=== PATIENT | female | born 1950 | race African-American/Black ===

== ENCOUNTER 2018-11-06 18:36 | Emergency (ER) | payer MEDICARE, BC ==
[~2018-11-06] VITALS: Ht 167.6 cm; Wt 93.0 kg
--- OUTSIDE RECORDS SUMMARY | 2018-11-06 18:38 | XMS REPORT | Clinical Summary ---
Author Author [facility] Organization [facility] Address Unknown Phone Unavailable Care Team Providers Care Hardware Engineer Name Role Phone Jesus Quesada MD PCP Allergies No Known Allergies Medications End Date Status Medication Sig Dispensed Refills Start Date Active acetaminophen-codeine 0 (TYLENOL WITH CODEINE #3) 8 300-30 mg per tablet Active azelastine 0.15 % (205.5 2 mcg) spray,non-aerosol 8 Active escitalopram (LEXAPRO) 20 2 MG tablet 8 Active gabapentin (NEURONTIN) 0 100 mg capsule 8 Active lansoprazole (PREVACID) 0 30 MG capsule 8 Active fluticasone (FLONASE) 50 2 sprays by 0 mcg/actuation nasal spray Each Nare route daily. 01/03/2019 Active losartan (COZAAR) 100 MG Take 1 tablet 90 tablet 1 tabletIndications: (100 mg 8 Essential hypertension total) by mouth daily for 180 days. Active peppermint oil 0.2 mL Take 1 30 capsule 2 capsule,delayed capsule by 9 release(DR/EC)Indications mouth daily. : Irritable bowel syndrome with diarrhea 09/29/2019 Active capsaicin (ZOSTRIX) 0.025 Apply 60 g 0 % creamIndications: topically 2 9 Neuropathy (two) times a day. Active amLODIPine (NORVASC) 10 Take 1 tablet 90 tablet 1 mg tabletIndications: (10 mg total) 9 Essential hypertension by mouth daily. 09/29/2018 Discontinued amLODIPine (NORVASC) 5 mg 0 tablet 8 07/07/2018 Discontinued losartan (COZAAR) 50 MG 0 09/11/201 tablet 8 Active Problems Problem Noted Date Mild cognitive impairment 09/29/2018 Lumbar degenerative disc disease 09/29/2018 Overview: Currently managed by surgery. Using narcotic but only as needed. Discussed risks. Xerosis of skin 09/29/2018 roasterman current use of opiate analgesic 09/29/2018 Neuropathy 09/29/2018 Chronic abdominal pain 09/29/2018 Diverticulosis of large intestine without hemorrhage 09/01/2018 Essential hypertension 07/20/2018 GERD with esophagitis 07/20/2018 Cervicalgia 07/20/2018 Menopausal and female climacteric states 07/20/2018 Vertigo 07/20/2018 Age-related osteoporosis without current pathological fracture 07/20/2018 Seasonal allergic rhinitis due to pollen 07/20/2018 Hiatal hernia 07/20/2018 Prediabetes 07/20/2018 Irritable bowel syndrome 07/20/2018 Abnormal transaminases 07/20/2018 Vitamin D deficiency 07/20/2018 Recurrent major depressive disorder, in full remission 07/20/2018 Hallux valgus, left 07/20/2018 Elevated LDL cholesterol level 07/20/2018 Overview: 183 in 2016 Colon cancer screening 11/05/2009 Encounters Care Team Description Date Type Specialty Jesus Quesada MD MCI (mild cognitive impairment) with memory loss (Primary Dx); Chronic abdominal pain; Neuropathy; Age-related osteoporosis with current pathological fracture, sequela; Fatigue, unspecified type; roasterman current use of opiate analgesic ; Xerosis of skin; Lumbar degenerative disc disease; Essential hypertension 09/29/2018 Office Visit Internal Medicine Jesus Quesada MD Irritable bowel syndrome with diarrhea (Primary Dx) 09/01/2018 Office Visit Internal Medicine Jesus Quesada MD 08/30/2018 Documentation Internal Medicine Jesus Quesada MD 07/08/2018 Telephone Internal Medicine Jesus Quesada MD Age-related osteoporosis without current pathological fracture (Primary Dx); Essential hypertension; Elevated lipids; Pre-diabetes; Encounter to establish care 07/07/2018 Office Visit Internal Medicine Mady Valverde MA 07/07/2018 Telephone Internal Medicine after 11/05/2017 Immunizations Name Dates Previously Given Next Due Tdap 09/04/2017 Family History Medical History Relation Name Comments Diabetes Brother Cancer Father Lymphoma Father Hypertension Maternal Grandfather Heart disease Mother Heart failure Paternal Grandmother Diabetes Sister Relation Name Status Comments Brother Alive Father Maternal Grandfather Mother Paternal Grandmother Sister Alive Social History Date Tobacco Use Types Packs/Day Years Used Never Smoker Smokeless Tobacco: Never Used Alcohol Use Drinks/Week oz/Week Comments No Alcohol Habits Answer Date Recorded How often do you have a drink containing alcohol? Never 07/07/2018 How many drinks containing alcohol do you have on Not asked a typical day when you are drinking? How often do you have six or more drinks on one Not asked occasion? Sex Assigned at Date Recorded Not on file Industry Job Start Date Occupation Not on file Not on file Not on file Travel End Travel History Travel Start No recent travel history available. Last Filed Vital Signs Time Taken Vital Sign Reading 09/29/2018 10:38 AM [employer] Blood Pressure 155/89 09/29/2018 10:38 AM [employer] Pulse 73 09/29/2018 10:38 AM [employer] Temperature 36.8 C (98.3 F) - Respiratory Rate - 09/29/2018 10:38 AM [employer] Oxygen Saturation 98% - Inhaled Oxygen - Concentration 09/29/2018 10:38 AM [employer] Weight 93.9 kg (207 lb) 09/29/2018 10:38 AM [employer] Height 167.6 cm (5' 6") 09/29/2018 10:38 AM [employer] Body Mass Index 33.41 Plan of Treatment Care Team Description Date Type Specialty Jesus Quesada MD [address] [facility] [address] [place] [address] [phone] 11/10/2018 Office Visit Internal Medicine Health Maintenance Due Date Last Done Comments BREAST CANCER SCREENING 1999 SHINGLES VACCINES (#1) 1999 65+ PNEUMOCOCCAL VACCINE 2014 (1 of 2 - PCV13) COLON CANCER SCREENING 10/24/2020 10/24/2010 PNEUMOCOCCAL Completed 05/09/2016 POLYSACCHARIDE VACCINE AGE 65 AND OVER INFLUENZA VACCINE Completed 2018 Procedures Comments Procedure Name Priority Date/Time Associated Diagnosis C-REACTIVE PROTEIN Routine 09/29/2018 MCI (mild cognitive 11:25 AM [employer] impairment) with memory loss Neuropathy RPR TITER WITH REFLEX TO Routine 09/29/2018 MCI (mild cognitive CONFIRMATION 11:25 AM [employer] impairment) with memory loss Neuropathy FERRITIN LEVEL Routine 09/29/2018 Xerosis of skin 11:25 AM [employer] MCI (mild cognitive impairment) with memory loss Neuropathy Age-related osteoporosis with current pathological fracture, sequela VITAMIN D 25 HYDROXY Routine 09/29/2018 MCI (mild cognitive LEVEL 11:25 AM [employer] impairment) with memory loss Neuropathy Age-related osteoporosis with current pathological fracture, sequela THYROID STIMULATING Routine 09/29/2018 MCI (mild cognitive HORMONE 11:25 AM [employer] impairment) with memory loss Neuropathy Age-related osteoporosis with current pathological fracture, sequela VITAMIN B12 LEVEL Routine 09/29/2018 roasterman current use of 11:25 AM [employer] opiate analgesic MCI (mild cognitive impairment) with memory loss Neuropathy Age-related osteoporosis with current pathological fracture, sequela COMPREHENSIVE METABOLIC Routine 07/07/2018 Essential hypertension PANEL 3:40 PM [employer] LIPID PANEL WITH LDL/HDL Routine 07/07/2018 Essential hypertension RATIO 3:40 PM [employer] Elevated lipids HEMOGLOBIN A1C Routine 07/07/2018 Pre-diabetes 3:40 PM [employer] after 11/05/2017 Results * RPR titer with reflex to confirmation (09/29/2018 11:25 AM [employer]) RPR Non Reactive Non Reactive [facility] Specimen Blood Narrative Performed At Performed at:01 - [facility] [address] [place], [id number] Jewel Waxer: Michael Rogers MD, Phone:[phone] Performing Organization Address [facility] Phone Number [facility] * Vitamin D 25 hydroxy level (09/29/2018 11:25 AM [employer]) Vitamin D, 25-hydroxy 31.3 30.0 - 100.0 ng/mL [facility] Comment: Vitamin D deficiency has been defined by the [place] of [employer] and an Endocrine Society practice guideline as a level of serum 25-OH vitamin D less than 20 ng/mL (1,2). The Endocrine Society went on to further define vitamin D insufficiency as a level between 21 and 29 ng/mL (2). 1. IOM ([place] of [employer]). 2010. Dietary reference intakes for calcium and D. [place]uesada [place]: The National Academies Press. 2. Shimon MF, Manoj NC, Bee SANTIZO, et al. Evaluation, treatment, and prevention of vitamin D deficiency: an Endocrine Society clinical practice guideline. JCEM. 2010; 96(7):1911-30. Specimen Blood Narrative Performed At Performed at:[address] [place], [place] [id number] Jewel Waxer: Michael Rogers MD, Phone:[phone] Performing Organization Address [facility] Phone Number [facility] * C-reactive protein (09/29/2018 11:25 AM [employer]) CRP 2.3 0.0 - 4.9 mg/L [facility] Specimen Blood Narrative Performed At Performed at:[address] [place], [place] [id number] Jewel Waxer: Michael Rogers MD, Phone:[phone] Performing Organization Address [facility] Phone Number [facility] * Thyroid stimulating hormone (09/29/2018 11:25 AM [employer]) TSH 1.080 0.450 - 4.500 uIU/mL [facility] Specimen Blood Narrative Performed At Performed at:[address] [place], [place] [id number] Jewel Waxer: Michael Rogers MD, Phone:[phone] Performing Organization Address [facility] Phone Number [facility] * Ferritin level (09/29/2018 11:25 AM [employer]) Ferritin level 102 15 - 150 ng/mL [facility] Specimen Blood Narrative Performed At Performed at:[address] [place], [place] [id number] Jewel Waxer: Michael Rogers MD, Phone:[phone] Performing Organization Address [facility] Phone Number [facility] * Vitamin B12 level (09/29/2018 11:25 AM [employer]) Vitamin B12 423 232 - 1,245 pg/mL [facility] Specimen Blood Narrative Performed At Performed at:[address] [place], [place] [id number] Jewel Waxer: Michael Rogers MD, Phone:[phone] Performing Organization Address [facility] Phone Number [facility] * Lipid panel with LDL/HDL ratio (07/07/2018 3:40 PM [employer]) Cholesterol 225 (H) 100 - 199 mg/dL [facility] Triglycerides 199 (H) 0 - 149 mg/dL [facility] HDL cholesterol 48 >39 mg/dL [facility] VLDL cholesterol cesar 40 5 - 40 mg/dL [facility] LDL cholesterol 137 (H) 0 - 99 mg/dL [facility] calculated LDl/HDL ratio 2.9 0.0 - 3.2 ratio [facility] Comment: LDL/HDL Ratio Me nWomen 1/2 Avg.Risk1.01.5 Avg.Risk3.6 3.2 2X Avg.Risk6.25.0 3X Avg.Risk8.06.1 Specimen Blood Narrative Performed At Performed at: - [facility] [address] [place], [place] [id number] Jewel Waxer: Michael Rogers MD, Phone:[phone] Performing Organization Address [facility] Phone Number [facility] * Hemoglobin A1c (07/07/2018 3:40 PM [employer]) Hemoglobin A1C 6.0 (H) 4.8 - 5.6 % [facility] Comment: Prediabetes: 5.7 - 6.4 Diabetes: >6.4 Glycemic control for adults with diabetes: <7.0 Specimen Blood Narrative Performed At Performed at: - [facility] [address] [place], [place] [id number] Jewel Waxer: Michael Rogers MD, Phone:[phone] Performing Organization Address [facility] Phone Number [facility] * Comprehensive metabolic panel (07/07/2018 3:40 PM [employer]) Glucose 89 65 - 99 mg/dL [facility] BUN, whole blood 13 8 - 27 mg/dL [facility] Creatinine 1.12 (H) 0.57 - 1.00 mg/dL [facility] EGFR Non-Afr. French 50 (L) >59 mL/min/1.73 [facility] EGFR 58 (L) >59 mL/min/1.73 [facility] BUN/creatinine ratio 12 12 - 28 [facility] Sodium 144 134 - 144 mmol/L [facility] Potassium 4.6 3.5 - 5.2 mmol/L [facility] Chloride 106 96 - 106 mmol/L [facility] CO2 20 20 - 29 mmol/L [facility] Calcium 9.4 8.7 - 10.3 mg/dL [facility] Protein 7.5 6.0 - 8.5 g/dL [facility] Albumin, S 4.6 3.6 - 4.8 g/dL [facility] Globulin, total 2.9 1.5 - 4.5 g/dL [facility] Albumin/globulin ratio 1.6 1.2 - 2.2 [facility] Total bilirubin <0.2 0.0 - 1.2 mg/dL [facility] Alkaline phosphatase 139 (H) 39 - 117 IU/L [facility] AST 26 0 - 40 IU/L [facility] ALT 25 0 - 32 IU/L [facility] Specimen Blood Narrative Performed At Performed at: - [facility] [address] [place], [id number] Jewel Waxer: Michael Rogers MD, Phone:[phone] Performing Organization Address City/State/Zipcode Phone Number [facility] after 11/05/2017 Insurance Payer Benefit Subscriber ID Type Phone Address Plan / Group MEDICARE MEDICARE xxxxxxxxxxx Medicare [place], [place] PART A AND B BCBS BCBS xxxxxxxxxxxx PPO CHOICE PPO/YOSHI Mayer [employer] PPO Advance Directives Patient has advance care planning documents on file. For more information, josh arshad contact: José Plascencia [address] [place] [address]
[2018-11-06] MEDS ORDERED: TRAMADOL HCL 50 MG TAB PO ONE (19:30)
--- NOTE | 2018-11-06 20:00 | Diagnostic Imaging Report ---
History: Fall Comparison studies: None Technique: Axial images were obtained from the skull base to the vertex. Coronal and sagittal reconstructions obtained from the axial data. Dose modulation, iterative reconstruction, and/or weight based adjustment of the mA/kV was utilized to reduce the radiation dose to as low as reasonably achievable. Findings: Scalp/skull: No abnormalities. No fractures, blastic or lytic lesions. Extra-axial spaces: No masses. No fluid collections. Brain sulci: Appropriate for age. Ventricles: Normal in size and configuration. No hydrocephalus. Parenchyma: No abnormal densities. No masses, hemorrhage, acute or chronic cortical vascular insults. Sellar/suprasellar region: No abnormalities Craniocervical junction: Patent foramen magnum. No Chiari one malformation. IMPRESSION: No abnormalities. Signed by: Dr. Yordy Grant M.D. on 11/06/2018 7:56 PM
--- NOTE | 2018-11-06 20:03 | Diagnostic Imaging Report ---
History: Fall Comparison studies: None Technique: Axial images were obtained through the cervical region.. Coronal and sagittal images reconstructed from the axial data. Dose modulation, iterative reconstruction, and/or weight based adjustment of the mA/kV was utilized to reduce the radiation dose to as low as reasonably achievable. Intravenous contrast: None Findings: Fractures: None. Soft tissues: No gross abnormalities. Atlantoaxial articulation: Intact. Alignment: Slight reversal of the usual lordosis centered at C5-6 is probably positional. No scoliosis. Cervicomedullary junction: No abnormalities. The foramen magnum is patent. Vertebrae: No infection or neoplasm. Degenerative changes: Mildly degenerated discs from C4 to C7. Mild foraminal stenosis on the right at C4-5 due to uncovertebral arthrosis. Mild spinal canal stenosis at C5-6 due to a disc osteophyte complex. Incidental findings: Atherosclerotic calcifications in the proximal subclavian arteries and at the carotid bulbs. Several surgical clips posterior to the right lobe of the thyroid. IMPRESSION: 1. No acute abnormalities. No fractures 2. Cannot adequately evaluate for ligament, spinal cord and or vascular abnormalities. 3. Degenerative changes as described Signed by: Dr. Yordy Grant M.D. on 11/06/2018 8:00 PM
--- NOTE | 2018-11-06 20:06 | Diagnostic Imaging Report ---
History:Fall Comparison studies: None Technique: Axial images were obtained through the maxillofacial region. Coronal and sagittal images reconstructed from the axial data. Dose modulation, iterative reconstruction, and/or weight based adjustment of the mA/kV was utilized to reduce the radiation dose to as low as reasonably achievable. Intravenous contrast: None Findings: Soft tissues: No abnormalities. Bones: No fractures or bone abnormalities. Incidental multiple missing teeth Orbits: Globes: Intact Extra or intraconal abnormalities: None. Paranasal sinuses: Minimal mucosal thickening in the maxillary sinuses. Otherwise clear Otherwise clear. IMPRESSION: 1. No acute abnormalities. 2. No fractures Signed by: Dr. Yordy Grant M.D. on 11/06/2018 8:02 PM
--- NOTE | 2018-11-06 20:46 | Diagnostic Imaging Report ---
KNEE LEFT THREE VIEWS - 3 views HISTORY: Fracture. COMPARISON: None available. FINDINGS: Bones: No acute displaced fracture. Osseous alignment is within normal limits. Joints: The joint spaces are well-maintained. Soft tissues: Mild patellar enthesopathy. IMPRESSION: No acute osseous abnormality. Signed by: Dr. Jessica Damon M.D. on 11/06/2018 8:43 PM
[2018-11-06 21:35] VITALS: BP 170/91
== END 2018-11-06 21:30 | disposition home or self-care (01) ==
LOC: ER 18:36
DX: S00.83XA Contusion of other part of head, initial encounter (principal); S00.511A Abrasion of lip, initial encounter; S80.212A Abrasion, left knee, initial encounter; W01.0XXA Fall on same level from slipping, tripping and stumbling without subsequent striking against object, initial encounter; Y92.007 Garden or yard of unspecified non-institutional (private) residence as the place of occurrence of the external cause; I10 Essential (primary) hypertension; K21.9 Gastro-esophageal reflux disease without esophagitis
CPT/HCPCS: 70450; 70486; 72125; 99283